=== PATIENT | male | born 1945 | race Caucasian/White ===

== ENCOUNTER 2022-07-02 05:14 | Emergency (ER) | payer BC, SELFPAY ==
[2022-07-02 05:22] VITALS: BP 139/88; PULSE 124; RESP 24; TEMP 36.7; O2SAT 94
[2022-07-02 05:30] VITALS: BP 132/90; PULSE 117; RESP 24; O2SAT 93
--- NOTE | 2022-07-02 05:43 | CRLHL7_ITS ---
For Patients: As a result of the Cures Act, medical imaging exams and procedure reports are released immediately into your electronic medical record. You may view this report before your referring provider. If you have questions, please contact your health care provider. INDICATION: Shortness of breath TECHNIQUE: Chest 2 views. COMPARISON: Chest x-ray 12/18/2021 FINDINGS: The heart is normal in size. The pulmonary vasculature is within normal limits. The lungs are clear without focal consolidation, pleural effusion or pneumothorax. There are mild degenerative changes of the thoracic spine. IMPRESSION: No acute process. Dictated by Azra Ireland MD @ 07/02/2022 6:33:43 AM Dictated by: Azra Ireland MD @ 07/02/2022 06:33:53 (Electronically Signed)
--- NOTE | 2022-07-02 05:50 | ED_ITS ---
HPI - SOB/Dyspnea General Date Seen: 07/02/22 Chief Complaint: Shortness of Breath/Dyspnea Stated Complaint: can't breath Time Seen by Provider: 07/02/22 05:31 Source: patient and family Mode of arrival: ambulatory Limitations: no limitations History of Present Illness MD elicited complaint: shortness of breath and cough Pertinent past history: COPD Onset (ago): hour(s) Context: smoke/fume exposure Timing: constant Severity: moderate Relieving factors: bronchodilators and upright position Known history of: COPD Associated symptoms: denies other symptoms Treatment prior to arrival: bronchodilator Related Data Home oxygen amount: none Home Medications Medication Instructions Recorded Confirmed albuterol sulfate 90 mcg/actuation inhalation 07/02/22 aerosol inhaler amlodipine 2.5 mg tablet mg 07/02/22 finasteride 5 mg tablet mg 07/02/22 fluoxetine 10 mg capsule mg 07/02/22 fluticasone 500 mcg-salmeterol 50 inhalation BID 07/02/22 mcg/dose blistr powdr for inhalation (Advair Diskus) ipratropium 20 mcg-albuterol 100 inhalation QID 07/02/22 mcg/actuation mist for inhalation (Combivent Respimat) levothyroxine 125 mcg tablet mcg 07/02/22 levothyroxine 150 mcg tablet mcg 07/02/22 losartan 50 mg tablet mg 07/02/22 rosuvastatin 5 mg tablet mg 07/02/22 Previous Rx's Medication Instructions Recorded oseltamivir 30 mg capsule (Tamiflu) 30 mg PO BID 5 days #10 caps 07/02/22 prednisone 50 mg tablet 50 mg PO DAILY #7 tabs 07/02/22 Allergies Allergy/AdvReac Type Severity Reaction Status Date / Time ampicillin Allergy hives Verified 07/02/22 05:27 Review of Systems Status of ROS: Reports: 10 or more systems reviewed and unremarkable except as noted in History and below PFSH PFSH Social History Smoking Status: Current every day smoker How often do you have a drink containing alcohol: never AUDIT-C Alcohol total score: 0 Non-prescribed substance use: denies use Exam Narrative: Exam Narrative: I find him in room 2, speaking to me in full sentences, no coughing. Pupils are equal round reactive to light, there is no scleral icterus redness, TMs bilaterally are normal, oropharynx is normal, he is hyperinflated, but there is no signs of of respiratory distress, no crackles or wheezes are noted, but he is not moving a lot of air. Heart sounds no clicks murmurs or gallops, S1-S2 heard normal but the heart sounds are distant. Abdomen is soft and obese there is no guarding no pedal splenomegaly. Skin reveals no rashes, no leg swelling. Const: Vital Signs, click to edit/add: Vital Signs - 24 hr 07/02/22 05:22 07/02/22 05:30 07/02/22 06:00 Temperature 98.0 F Pulse Rate [Left P ulse Oximeter] 124 H 117 H 121 H Respiratory Rate 24 24 22 Blood Pressure [Ri ght Upper Arm] 139/88 132/90 H 134/89 Pulse Oximetry 94 93 Oxygen Delivery Me thod Room Air Room Air Room Air 07/02/22 06:30 Temperature Pulse Rate [Left P ulse Oximeter] 107 H Respiratory Rate 20 Blood Pressure [Ri ght Upper Arm] 129/85 Pulse Oximetry Oxygen Delivery Me thod Room Air Documenting provider has reviewed patient's vital signs: yes Common normals: no apparent distress General appearance: cooperative and comfortable Nutritional appearance: obese Orientation/consciousness: Yes awake Neuro: Sensorium/orientation: awake Course Course Hospital Course: Reviewed labs with the patient is D-dimer is normal, age adjusted, troponin negative, EKG shows no acute changes chest x-ray showed no acute findings, and he is influenza A positive, which is likely causing his COPD exacerbation, I think we will give him Tamiflu, along with the prednisone, he will use his inhalers, he is markedly improved here, talking to me in full sentences feeling better. No need for hospitalization, or other issue currently, I went over with him the signs and symptoms of worsening he will follow-up these occur. Vital Signs Vital signs: Initial Vital Signs Temperature 98.0 F 07/02/22 05:22 Temperature Source Temporal Artery Scan 07/02/22 05:22 Pulse Rate 124 H 07/02/22 05:22 Respiratory Rate 24 07/02/22 05:22 Blood Pressure 139/88 07/02/22 05:22 Blood Pressure Mean 105 07/02/22 05:22 Blood Pressure Position Sitting 07/02/22 05:22 Pulse Oximetry 94 07/02/22 05:22 Oxygen Delivery Method 07/02/22 05:22 Vital Signs Temperature 98.0 F 07/02/22 05:22 Pulse Rate 124 H 07/02/22 05:22 Respiratory Rate 24 07/02/22 05:22 Blood Pressure 139/88 07/02/22 05:22 Pulse Oximetry 94 07/02/22 05:22 Oxygen Delivery Method 07/02/22 05:22 Temperature 98.0 F 07/02/22 05:22 Pulse Rate 107 H 07/02/22 06:30 Respiratory Rate 20 07/02/22 06:30 Blood Pressure 129/85 07/02/22 06:30 Pulse Oximetry 93 07/02/22 05:30 Oxygen Delivery Method 07/02/22 06:30 MDM - SOB/Dyspnea MDM Narrative Medical decision making narrative: Life-threatening differential diagnosis includes occluded COPD exacerbation, pulmonary edema, acute coronary syndromes, pulmonary embolism, pneumonia, and pneumothorax. Other differential diagnosis considerations include asthma, bronchitis as well as other etiologies Differential Diagnosis Differential diagnosis: Likely acute exacerbation of chronic obstructive airways disease, congestive heart failure, community acquired pneumonia, asthma with exacerbation and pulmonary embolism Medical Records Attestation: I reviewed the patient's medical records. Lab Data Attestation: I reviewed the patient's lab results. Labs: Lab Results 07/02/22 07/02/22 07/02/22 Range/Units 05:35 06:10 06:10 WBC 7.20 (4.50-11.00) K/uL RBC 4.23 L (4.30-5.90) m/uL Hgb 14.4 (13.5-17.5) gm/dL Hct 40.6 (37.0-53.0) % MCV 96 (80-100) fL MCH 34 (26-34) pg MCHC 36 (32-36) gm/dL RDW Coeff of Kateryna 12.6 (11.5-15.5) % Plt Count 264 (140-440) K/uL Neut % (Auto) 80.6 H (42.0-72.0) % Lymph % (Auto) 8.3 L (20-44) % Monroe % (Auto) 7.5 (0.0-11.0) % Eos % (Auto) 2.4 (0.0-7.0) % Baso % (Auto) 0.6 (0.0-3.0) % Neut # (Auto) 5.80 (1.7-7.0) K/uL Lymph # (Auto) 0.60 L (0.90-2.90) K/uL Monroe # (Auto) 0.50 (0.00-0.90) K/UL Eos # (Auto) 0.17 (0.00-0.50) K/uL Baso # (Auto) 0.04 (0.00-0.30) K/uL Abs Immat Gran (auto) 0.04 (0.00-0.30) K/uL Imm/Tot Granulo (auto) 0.6 % D-Dimer Quant (PE/DVT) (0.00-0.50) ug/ml Sodium 131 L (135-149) mmol/L Potassium 5.0 (3.6-5.1) mmol/L Chloride 100 (96-114) mmol/L Carbon Dioxide 25 (20-32) mmol/L BUN 23 (7-30) mg/dL Creatinine 1.3 (0.5-1.5) mg/dL Estimated Creat Clear 50.69 Estimated GFR 57 ml/min Glucose 102 (60-115) mg/dL Calcium 9.5 (8.4-10.6) mg/dL NT-Pro-B Natriuret Pep (0-450) PG/mL SARS-CoV-2 (PCR) Negative SARS-CoV-2 (Negative) Influenza Type A (PCR) POSITIVE PCR FLU A A (Negative) Influenza Type B (PCR) Negative PCR FLU B (Negative) RSV (PCR) Negative PCR RSV (Negative) POC Troponin I (0.01-0.04) ng/ml 07/02/22 07/02/22 07/02/22 Range/Units 06:10 06:10 06:10 WBC (4.50-11.00) K/uL RBC (4.30-5.90) m/uL Hgb (13.5-17.5) gm/dL Hct (37.0-53.0) % MCV (80-100) fL MCH (26-34) pg MCHC (32-36) gm/dL RDW Coeff of Kateryna (11.5-15.5) % Plt Count (140-440) K/uL Neut % (Auto) (42.0-72.0) % Lymph % (Auto) (20-44) % Monroe % (Auto) (0.0-11.0) % Eos % (Auto) (0.0-7.0) % Baso % (Auto) (0.0-3.0) % Neut # (Auto) (1.7-7.0) K/uL Lymph # (Auto) (0.90-2.90) K/uL Monroe # (Auto) (0.00-0.90) K/UL Eos # (Auto) (0.00-0.50) K/uL Baso # (Auto) (0.00-0.30) K/uL Abs Immat Gran (auto) (0.00-0.30) K/uL Imm/Tot Granulo (auto) % D-Dimer Quant (PE/DVT) 0.55 H (0.00-0.50) ug/ml Sodium (135-149) mmol/L Potassium (3.6-5.1) mmol/L Chloride (96-114) mmol/L Carbon Dioxide (20-32) mmol/L BUN (7-30) mg/dL Creatinine (0.5-1.5) mg/dL Estimated Creat Clear Estimated GFR ml/min Glucose (60-115) mg/dL Calcium (8.4-10.6) mg/dL NT-Pro-B Natriuret Pep 114 (0-450) PG/mL SARS-CoV-2 (PCR) (Negative) Influenza Type A (PCR) (Negative) Influenza Type B (PCR) (Negative) RSV (PCR) (Negative) POC Troponin I 0.00 L (0.01-0.04) ng/ml Imaging Data Chest x-ray: Attestation: I have reviewed the pertinent imaging results. My impression: Hyperinflation, no acute change when compared to old chest x-ray Radiologist's impression: Patient: ORESTES NIEVES Facility:?[facility] Patient ID:?[id number] Site Patient ID:?[id number]. Site :?[id number] Study:?XRay Chest 2 views-07/02/2022 6:07:55 AM Ordering Physician:Stephy Hudson Final Report: INDICATION: Shortness of breath TECHNIQUE: Chest 2 views. COMPARISON: Chest x-ray 12/18/2021 FINDINGS: The heart is normal in size. The pulmonary vasculature is within normal limits. The lungs are clear without focal consolidation, pleural effusion or pneumothorax. There are mild degenerative changes of the thoracic spine. IMPRESSION: No acute process. Dictated by Azra Ireland MD @ 07/02/2022 6:33:43 AM Dictated by: Azra Ireland MD @ 07/02/2022 06:33:53 (Electronic Signature) ECG Data Attestation: I personally reviewed and interpreted this ECG as follows: ECG interpretation date: 07/02/22 Interpretation: Mild sinus tachycardia with a ventricular rate of 109, no acute ST wave changes, Discharge Plan Discharge Clinical Impression: Influenza A, Acute infective exacerbation of chronic obstructive airway disease, Tobacco use disorder Patient Disposition: Home, Self-Care Condition: Stable Instructions: Influenza (ED), COPD (Chronic Obstructive Pulmonary Disease) (DC) Additional Instructions: Home rest continue with prednisone, Tamiflu, and inhalers as needed. Rest, plenty of fluids. Return here if signs and symptoms of worsening, but clearly you are maintaining your own now. Stop smoking! Prescriptions: New oseltamivir [Tamiflu] 30 mg capsule 30 mg PO BID 5 Days Qty: 10 0RF prednisone 50 mg tablet 50 mg PO DAILY Qty: 7 0RF No Action losartan 50 mg tablet Label Comments: TAKE 1 TABLET (50 MG) BY MOUTH ONCE DAILY. amlodipine 2.5 mg tablet Label Comments: TAKE 1 TABLET (2.5 MG) BY MOUTH ONCE DAILY. levothyroxine 125 mcg tablet Label Comments: TAKE ONE TABLET BY MOUTH EVERY OTHER DAY, ALTERNATING WITH 150 MCG TABLET levothyroxine 150 mcg tablet Label Comments: TAKE ONE TABLET BY MOUTH EVERY OTHER DAY fluticasone propion-salmeterol [Advair Diskus] 500-50 mcg/dose blister with device INHALATION BID Label Comments: INHALE 1 PUFF BY MOUTH IN THE MORNING AND 1 PUFF IN THE EVENING. fluoxetine 10 mg capsule Label Comments: TAKE 1 CAPSULE (10 MG) BY MOUTH ONCE DAILY. albuterol sulfate 90 mcg/actuation HFA aerosol inhaler INHALATION Label Comments: INHALE 1-2 PUFFS BY MOUTH EVERY 4 HOURS IF NEEDED FOR SHORTNESS OF BREATH. USE WITH SPACER finasteride 5 mg tablet Label Comments: TAKE 1 TABLET (5 MG) BY MOUTH BEFORE BREAKFAST. rosuvastatin 5 mg tablet Label Comments: TAKE 1 TABLET (5 MG) BY MOUTH AT BEDTIME. Combivent Respimat 20-100 mcg/actuation mist INHALATION QID Label Comments: INHALE 1 PUFF BY MOUTH 4 TIMES DAILY. Follow Up/Referrals: Liana Schmidt MD [Primary Care Provider] - Stand Alone Forms: [facility] Info Instructions
[2022-07-02 06:00] VITALS: BP 134/89; PULSE 121; RESP 22
[2022-07-02] MEDS: predniSONE 10 MG TABLET 50 MG PO (06:07)
[2022-07-02] MEDS: IPRAT-ALBUT 0.5-2.5 MG/3 ML NEB 1 NEB IH (06:07)
[2022-07-02 06:21] LABS: Basophils Absolute Auto 0.04 K/uL (0.00-0.30); Basophils Percent Auto 0.6 % (0.0-3.0); Eosinophils Absolute Auto 0.17 K/uL (0.00-0.50); Eosinophils Percent Auto 2.4 % (0.0-7.0); Hematocrit 40.6 % (37.0-53.0); Hemoglobin* 14.4 gm/dL (13.5-17.5); Immature Granulocytes Abs Auto 0.04 K/uL (0.00-0.30); Immature Granulocytes Pct Auto 0.6 %; Lymphocytes Percent Auto 8.3 % (20-44); Mean Corpuscular HGB Conc 36 gm/dL (32-36); Mean Corpuscular Hemoglobin 34 pg (26-34); Mean Corpuscular Volume 96 fL (80-100); Monocytes Percent Auto 7.5 % (0.0-11.0); Neutrophils Percent Auto 80.6 % (42.0-72.0); Platelet Count* 264 K/uL (140-440); RDW Coefficient of Variation % 12.6 % (11.5-15.5); Red Blood Count 4.23 m/uL (4.30-5.90); Slide Review Reflex No
[2022-07-02 06:21] LABS: PCR FLU A POSITIVE PCR FLU A (Negative); PCR FLU B Negative PCR FLU B (Negative); PCR RSV Negative PCR RSV (Negative)
[2022-07-02 06:22] LABS: SARS PCR* Negative SARS-CoV-2 (Negative)
[2022-07-02 06:30] VITALS: BP 129/85; PULSE 107; RESP 20
[2022-07-02 06:46] LABS: Chloride* 100 mmol/L (96-114); Sodium* 131 mmol/L (135-149)
[2022-07-02 06:49] LABS: Carbon Dioxide* 25 mmol/L (20-32); Creatinine* 1.3 mg/dL (0.5-1.5); Est. Creatinine Clearance* 50.69; Estimated Glomerular Filt Rate 57 ml/min
[2022-07-02 06:50] LABS: Blood Urea Nitrogen* 23 mg/dL (7-30); Calcium* 9.5 mg/dL (8.4-10.6); Glucose* 102 mg/dL (60-115)
[2022-07-02 06:51] LABS: D Dimer Quantitative* 0.55 ug/ml (0.00-0.50)
[2022-07-02 06:59] LABS: NT Pro B Type NatriureticPept* 114 PG/mL (0-450)
[2022-07-02 07:00] VITALS: BP 129/84; PULSE 106; RESP 20
[2022-07-02] MEDS: OSELTAMIVIR PHOSPHATE 75 MG CAPSULE PO (07:31)
== END 2022-07-02 07:42 | disposition home or self-care (01) ==
PROVIDERS: Emergency Provider Family Medicine; PCP Family Medicine
DX: J09.X2 Influenza due to identified novel influenza A virus with other respiratory manifestations (principal); J44.1 Chronic obstructive pulmonary disease with (acute) exacerbation; Z72.0 Tobacco use
CPT/HCPCS: 36415; 71046; 80048; 83880; 85025; 85379; 87502; 87634; 87635; 93005; 94640; 99284; 99285; A9270; J7512

== ENCOUNTER 2022-11-14 11:45 | Emergency (ER) | payer BC, SELFPAY ==
[2022-11-14] VITALS (25 sets, daily range): BP systolic 102–131; BP diastolic 77–108; PULSE 90–105; RESP 24–40; TEMP 36.4; O2SAT 92–97; BMI 29.1
[2022-11-14] MEDS: IPRAT-ALBUT 0.5-2.5 MG/3 ML NEB 1 NEB IH (12:00)
--- NOTE | 2022-11-14 12:07 | CRLHL7_ITS ---
For Patients: As a result of the Cures Act, medical imaging exams and procedure reports are released immediately into your electronic medical record. You may view this report before your referring provider. If you have questions, please contact your health care provider. Indication: Cough, short of breath Technique: Chest 2 views Comparison: Chest x-ray 07/02/2022 Findings/Impression: Cardiovascular and mediastinum: Normal heart size with atherosclerotic calcification. Lungs and pleural spaces: No pleural effusion or pneumothorax. No focal consolidation. Mild bronchial wall thickening which can be seen in bronchitis or reactive airways disease. Bones and soft tissues: No significant findings. Dictated by Les Castro MD @ 11/14/2022 1:17:51 PM (Electronically Signed)
--- NOTE | 2022-11-14 12:35 | ED_ITS ---
HPI - SOB/Dyspnea General Date Seen: 11/14/22 Chief Complaint: Shortness of Breath/Dyspnea Stated Complaint: Short of breath, cough Time Seen by Provider: 11/14/22 12:00 Source: patient Mode of arrival: ambulatory Limitations: no limitations History of Present Illness HPI Narrative: Patient is a 77-year-old gentleman with a history of COPD who presents here for the last 3-4 days with the some increasing shortness of breath, runny nose, inability here and pain in his ears bilaterally, also in the front of his face, denies any fevers or chills with this, any leg swelling, any chest pain, he has had no nausea vomiting associated with this, but has been at the for his son recently. Is not on chronic oxygen but does have a history of COPD, MD elicited complaint: shortness of breath Pertinent past history: COPD Onset (ago): day(s) Context: recent illness Timing: constant and progressively worsening Severity: moderate Exacerbating factors: lying flat and coughing Relieving factors: nothing Known history of: COPD Associated symptoms: cough, wheezing, sputum production and chest congestion Treatment prior to arrival: bronchodilator Related Data Home oxygen amount: none Home Medications Medication Instructions Recorded Confirmed albuterol sulfate 90 mcg/actuation inhalation 07/02/22 aerosol inhaler amlodipine 2.5 mg tablet mg 07/02/22 finasteride 5 mg tablet mg 07/02/22 fluoxetine 10 mg capsule mg 07/02/22 fluticasone 500 mcg-salmeterol 50 inhalation BID 07/02/22 mcg/dose blistr powdr for inhalation (Advair Diskus) ipratropium 20 mcg-albuterol 100 inhalation QID 07/02/22 mcg/actuation mist for inhalation (Combivent Respimat) levothyroxine 125 mcg tablet mcg 07/02/22 levothyroxine 150 mcg tablet mcg 07/02/22 losartan 50 mg tablet mg 07/02/22 rosuvastatin 5 mg tablet mg 07/02/22 Previous Rx's Medication Instructions Recorded oseltamivir 30 mg capsule (Tamiflu) 30 mg PO BID 5 days #10 caps 07/02/22 prednisone 50 mg tablet 50 mg PO DAILY #7 tabs 07/02/22 azithromycin 250 mg tablet See Rx Instructions PO .COMPLEX #6 11/14/22 (Zithromax Z-Joshua) tabs prednisone 50 mg tablet 50 mg PO DAILY #7 tabs 11/14/22 Allergies Allergy/AdvReac Type Severity Reaction Status Date / Time ampicillin Allergy hives Verified 07/02/22 05:27 Review of Systems Status of ROS: Reports: 10 or more systems reviewed and unremarkable except as noted in History and below [facility] Social History Smoking Status: Current every day smoker How often do you have a drink containing alcohol: never AUDIT-C Alcohol total score: 0 Non-prescribed substance use: denies use Exam Narrative: Exam Narrative: Patient is seen in room a, he is in no apparent distress but is super hard hearing, pupils are equal round reactive to light there is no scleral icterus, there is some redness noted of his throat, his TMs bilaterally show some hemorrhage, and fluid, with obvious otitis media, oropharynx shows great hydration status was no other swelling, neck is supple JVP [place] is down, his lungs bilaterally show really poor air more entry and expiration bilaterally with a prolonged expiratory phase I do not really hear any crackles or wheezes, heart sounds are distant faint but S1-S2 is normal there is no S3-S4 clicks murmurs or gallops his abdomen is soft and slightly obese there is no guarding, no organomegaly, no tenderness, his lower extremities reveal no pitting edema swelling, he moves all his extremities independently and well. Skin reveals no petechiae rashes, neurologically moves his upper lower extremities normal, there is no deficits. Cranial nerves 3-12 are normal. Const: Vital Signs, click to edit/add: Vital Signs - 24 hr 11/14/22 11:55 11/14/22 14:31 11/14/22 11:55 Temperature 97.6 F Pulse Rate 103 H Pulse Rate [Right Pulse Oximeter] 101 H Respiratory Rate 40 H 24 Blood Pressure Blood Pressure [Ri ght Upper Arm] 129/80 Pulse Oximetry 95 96 Oxygen Delivery Me thod Room Air 11/14/22 11:59 11/14/22 12:00 11/14/22 12:01 Temperature Pulse Rate 101 H 98 105 H Pulse Rate [Right Pulse Oximeter] Respiratory Rate Blood Pressure 129/80 123/81 Blood Pressure [Ri ght Upper Arm] Pulse Oximetry 95 95 93 Oxygen Delivery Me thod 11/14/22 12:15 11/14/22 12:39 11/14/22 12:45 Temperature Pulse Rate 93 105 H 104 H Pulse Rate [Right Pulse Oximeter] Respiratory Rate Blood Pressure Blood Pressure [Ri ght Upper Arm] Pulse Oximetry 92 95 95 Oxygen Delivery Me thod 11/14/22 12:52 11/14/22 12:53 11/14/22 13:00 Temperature Pulse Rate 102 H 103 H 101 H Pulse Rate [Right Pulse Oximeter] Respiratory Rate Blood Pressure 102/77 Blood Pressure [Ri ght Upper Arm] Pulse Oximetry 94 96 94 Oxygen Delivery Me thod 11/14/22 13:01 11/14/22 13:02 11/14/22 13:15 Temperature Pulse Rate 102 H 105 H 97 Pulse Rate [Right Pulse Oximeter] Respiratory Rate Blood Pressure 116/83 Blood Pressure [Ri ght Upper Arm] Pulse Oximetry 92 92 96 Oxygen Delivery Me thod 11/14/22 13:30 11/14/22 13:32 11/14/22 13:45 Temperature Pulse Rate 93 91 94 Pulse Rate [Right Pulse Oximeter] Respiratory Rate Blood Pressure 125/77 Blood Pressure [Ri ght Upper Arm] Pulse Oximetry 95 95 97 Oxygen Delivery Me thod 11/14/22 14:00 11/14/22 14:01 11/14/22 14:15 Temperature Pulse Rate 93 93 90 Pulse Rate [Right Pulse Oximeter] Respiratory Rate Blood Pressure 122/80 Blood Pressure [Ri ght Upper Arm] Pulse Oximetry 95 96 95 Oxygen Delivery Me thod 11/14/22 14:30 11/14/22 14:31 11/14/22 14:32 Temperature Pulse Rate 102 H 95 101 H Pulse Rate [Right Pulse Oximeter] Respiratory Rate Blood Pressure 126/108 H Blood Pressure [Ri ght Upper Arm] Pulse Oximetry 97 96 96 Oxygen Delivery Me thod 11/14/22 14:45 11/14/22 15:00 11/14/22 15:01 Temperature Pulse Rate 98 93 95 Pulse Rate [Right Pulse Oximeter] Respiratory Rate Blood Pressure 131/85 Blood Pressure [Ri ght Upper Arm] Pulse Oximetry 96 95 94 Oxygen Delivery Me thod Documenting provider has reviewed patient's vital signs: yes Course Course Hospital Course: Went back in to see the patient, he is markedly improved this respiratory rate that is now 17, he has no wheeziness, and feels much improved, I do think he has bilateral ear infections, and likely exacerbation of his COPD, I discussed with him, his troponin was negative, EKG was reassuring, and D-dimer was normal at this point, I think more use of his inhalers along with some prednisone and Zithromax, will go a long way to helping him, encouraged him to follow-up with regular physician, in the next 1-2 weeks. He was comfortable this plan he will return if any signs and symptoms of worsening. Vital Signs Vital signs: Initial Vital Signs Temperature 97.6 F 11/14/22 11:55 Temperature Source Temporal Artery Scan 11/14/22 11:55 Pulse Rate 103 H 11/14/22 11:55 Respiratory Rate 40 H 11/14/22 11:55 Blood Pressure 129/80 11/14/22 11:55 Blood Pressure Mean 96 11/14/22 11:55 Blood Pressure Position Sitting 11/14/22 11:55 Pulse Oximetry 95 11/14/22 11:55 Oxygen Delivery Method Room Air 11/14/22 11:55 Vital Signs Temperature 97.6 F 11/14/22 11:55 Pulse Rate 103 H 11/14/22 11:55 Respiratory Rate 40 H 11/14/22 11:55 Blood Pressure 129/80 11/14/22 11:55 Pulse Oximetry 95 11/14/22 11:55 Oxygen Delivery Method Room Air 11/14/22 11:55 Temperature 97.6 F 11/14/22 11:55 Pulse Rate 95 11/14/22 15:01 Respiratory Rate 24 11/14/22 14:31 Blood Pressure 131/85 11/14/22 15:01 Pulse Oximetry 94 11/14/22 15:01 Oxygen Delivery Method Room Air 11/14/22 11:55 MDM - SOB/Dyspnea MDM Narrative Medical decision making narrative: Life-threatening differential diagnosis includes occluded COPD exacerbation, pulmonary edema, acute coronary syndromes, pulmonary embolism, pneumonia, and pneumothorax. Other differential diagnosis considerations include asthma, bronchitis as well as other etiologies Medical Records Attestation: I reviewed the patient's medical records. Lab Data Labs: Lab Results 11/14/22 11/14/22 11/14/22 Range/Units 12:04 12:10 12:11 WBC 13.49 H (4.50-11.00) K/uL RBC 4.16 L (4.30-5.90) m/uL Hgb 14.0 (13.5-17.5) gm/dL Hct 40.0 (37.0-53.0) % MCV 96 (80-100) fL MCH 34 (26-34) pg MCHC 35 (32-36) gm/dL RDW Coeff of Kateryna 12.5 (11.5-15.5) % Plt Count 284 (140-440) K/uL Neut % (Auto) 83.2 H (42.0-72.0) % Lymph % (Auto) 10.5 L (20-44) % [place] % (Auto) 5.3 (0.0-11.0) % Eos % (Auto) 0.8 (0.0-7.0) % Baso % (Auto) 0.1 (0.0-3.0) % Neut # (Auto) 11.20 H (1.7-7.0) K/uL Lymph # (Auto) 1.40 (0.90-2.90) K/uL [place] # (Auto) 0.70 (0.00-0.90) K/UL Eos # (Auto) 0.10 (0.00-0.50) K/uL Baso # (Auto) 0.00 (0.00-0.30) K/uL INR 1.26 H (0.91-1.10) APTT 41 H (23-33) Seconds D-Dimer Quant (PE/DVT) 0.61 H (0.00-0.50) ug/ml Sodium 129 L (135-149) mmol/L Potassium 4.3 (3.6-5.1) mmol/L Chloride 100 (96-114) mmol/L Carbon Dioxide 23 (20-32) mmol/L BUN 21 (7-30) mg/dL Creatinine 1.3 (0.5-1.5) mg/dL Estimated Creat Clear 51.49 Estimated GFR 57 ml/min Glucose 146 H (60-115) mg/dL Calcium 8.9 (8.4-10.6) mg/dL C-Reactive Protein 9.0 H (0.5-1.0) mg/dL NT-Pro-B Natriuret Pep 185 pg/mL SARS-CoV-2 (PCR) Negative SARS-CoV-2 (Negative) Influenza Type A (PCR) Negative PCR FLU A (Negative) Influenza Type B (PCR) Negative PCR FLU B (Negative) RSV (PCR) Negative PCR RSV (Negative) Group A Strep DNA NOT DETECTED (Not Detectd) POC Troponin I (0.01-0.04) ng/ml 11/14/22 Range/Units 14:17 WBC (4.50-11.00) K/uL RBC (4.30-5.90) m/uL Hgb (13.5-17.5) gm/dL Hct (37.0-53.0) % MCV (80-100) fL MCH (26-34) pg MCHC (32-36) gm/dL RDW Coeff of Kateryna (11.5-15.5) % Plt Count (140-440) K/uL Neut % (Auto) (42.0-72.0) % Lymph % (Auto) (20-44) % [place] % (Auto) (0.0-11.0) % Eos % (Auto) (0.0-7.0) % Baso % (Auto) (0.0-3.0) % Neut # (Auto) (1.7-7.0) K/uL Lymph # (Auto) (0.90-2.90) K/uL [place] # (Auto) (0.00-0.90) K/UL Eos # (Auto) (0.00-0.50) K/uL Baso # (Auto) (0.00-0.30) K/uL INR (0.91-1.10) APTT (23-33) Seconds D-Dimer Quant (PE/DVT) (0.00-0.50) ug/ml Sodium (135-149) mmol/L Potassium (3.6-5.1) mmol/L Chloride (96-114) mmol/L Carbon Dioxide (20-32) mmol/L BUN (7-30) mg/dL Creatinine (0.5-1.5) mg/dL Estimated Creat Clear Estimated GFR ml/min Glucose (60-115) mg/dL Calcium (8.4-10.6) mg/dL C-Reactive Protein (0.5-1.0) mg/dL NT-Pro-B Natriuret Pep pg/mL SARS-CoV-2 (PCR) (Negative) Influenza Type A (PCR) (Negative) Influenza Type B (PCR) (Negative) RSV (PCR) (Negative) Group A Strep DNA (Not Detectd) POC Troponin I 0.02 (0.01-0.04) ng/ml ECG Data Attestation: I personally reviewed and interpreted this ECG as follows: ECG interpretation date: 11/14/22 Prior ECG tracings: not available for review Interpretation: EKG shows sinus tachycardia with a ventricular rate of 103, QRS QT and MI intervals normal. Discharge Plan Discharge Clinical Impression: Acute infective exacerbation of chronic obstructive airway disease Patient Disposition: Home w/ Parent or Adult Condition: Improved Instructions: COPD (Chronic Obstructive Pulmonary Disease) (DC), Chronic Bronchitis (DC) Additional Instructions: Home rest use of nebulize treatment, and nebs, we will put you on some Zithromax along with some prednisone for the next few days, return here if increasing shortness of breath or other symptoms, Activity Level: No Restrictions Discharge Diet: Regular Prescriptions: New azithromycin [Zithromax Z-Joshua] 250 mg tablet See Rx Instructions .ROUTE .COMPLEX Qty: 6 0RF Rx Instructions: For 250 mg dose pack: take 500 mg today (day 1), then 250 mg for 4 days (days 2-5) prednisone 50 mg tablet 50 mg PO DAILY Qty: 7 0RF No Action losartan 50 mg tablet Patient Comments: TAKE 1 TABLET (50 MG) BY MOUTH ONCE DAILY. amlodipine 2.5 mg tablet Patient Comments: TAKE 1 TABLET (2.5 MG) BY MOUTH ONCE DAILY. levothyroxine 125 mcg tablet Patient Comments: TAKE ONE TABLET BY MOUTH EVERY OTHER DAY, ALTERNATING WITH 150 MCG TABLET levothyroxine 150 mcg tablet Patient Comments: TAKE ONE TABLET BY MOUTH EVERY OTHER DAY fluticasone propion-salmeterol [Advair Diskus] 500-50 mcg/dose blister with device INHALATION BID Patient Comments: INHALE 1 PUFF BY MOUTH IN THE MORNING AND 1 PUFF IN THE EVENING. fluoxetine 10 mg capsule Patient Comments: TAKE 1 CAPSULE (10 MG) BY MOUTH ONCE DAILY. albuterol sulfate 90 mcg/actuation HFA aerosol inhaler INHALATION Patient Comments: INHALE 1-2 PUFFS BY MOUTH EVERY 4 HOURS IF NEEDED FOR SHORTNESS OF BREATH. USE WITH SPACER finasteride 5 mg tablet Patient Comments: TAKE 1 TABLET (5 MG) BY MOUTH BEFORE BREAKFAST. rosuvastatin 5 mg tablet Patient Comments: TAKE 1 TABLET (5 MG) BY MOUTH AT BEDTIME. Combivent Respimat 20-100 mcg/actuation mist INHALATION QID Patient Comments: INHALE 1 PUFF BY MOUTH 4 TIMES DAILY. oseltamivir [Tamiflu] 30 mg capsule 30 mg PO BID 5 Days Qty: 10 0RF prednisone 50 mg tablet 50 mg PO DAILY Qty: 7 0RF Follow Up/Referrals: Liana Schmidt MD [Primary Care Provider] - Stand Alone [facility] Info Inst[facility]
[2022-11-14 12:59] LABS: Basophils Percent Auto 0.1 % (0.0-3.0); Eosinophils Percent Auto 0.8 % (0.0-7.0); Immature Granulocytes Pct Auto 0.1 %; Lymphocytes Percent Auto 10.5 % (20-44); Mean Corpuscular HGB Conc 35 gm/dL (32-36); Mean Corpuscular Hemoglobin 34 pg (26-34); Mean Corpuscular Volume 96 fL (80-100); Monocytes Percent Auto 5.3 % (0.0-11.0); Neutrophils Percent Auto 83.2 % (42.0-72.0); Platelet Count* 284 K/uL (140-440); RDW Coefficient of Variation % 12.5 % (11.5-15.5); Red Blood Count 4.16 m/uL (4.30-5.90); White Blood Count* 13.49 K/uL (4.50-11.00)
[2022-11-14 13:08] LABS: D Dimer Quantitative* 0.61 ug/ml (0.00-0.50); INR 1.26 (0.91-1.10); Partial Thromboplastin Time* 41 Seconds (23-33); Prothrombin Time 16.5 Seconds
[2022-11-14 13:10] LABS: Slide Review Reflex No
[2022-11-14 13:23] LABS: Sodium* 129 mmol/L (135-149)
[2022-11-14 13:24] LABS: Strep A DNA Probe* NOT DETECTED (Not Detectd)
[2022-11-14 13:24] LABS: Blood Urea Nitrogen* 21 mg/dL (7-30); Calcium* 8.9 mg/dL (8.4-10.6); Carbon Dioxide* 23 mmol/L (20-32); Chloride* 100 mmol/L (96-114); Creatinine* 1.3 mg/dL (0.5-1.5); Est. Creatinine Clearance* 51.49; Estimated Glomerular Filt Rate 57 ml/min; Glucose* 146 mg/dL (60-115); NT Pro B Type NatriureticPept* 185 pg/mL; Potassium* 4.3 mmol/L (3.6-5.1)
[2022-11-14 13:29] LABS: PCR FLU A Negative PCR FLU A (Negative); PCR FLU B Negative PCR FLU B (Negative); PCR RSV Negative PCR RSV (Negative)
[2022-11-14 13:35] LABS: SARS PCR* Negative SARS-CoV-2 (Negative)
--- NOTE | 2022-11-14 13:56 | ED.NURSE ---
Pt c/o sore bottom due to sitting in bed for extended time. Pt assisted to sit in recliner in room.
[2022-11-14 14:43] LABS: Troponin, Point-of-Care* 0.02 ng/ml (0.01-0.04)
== END 2022-11-14 15:50 | disposition home or self-care (01) ==
PROVIDERS: Emergency Provider Family Medicine; PCP Family Medicine
DX: J44.1 Chronic obstructive pulmonary disease with (acute) exacerbation (principal)
CPT/HCPCS: 36415; 71046; 80048; 83880; 84484; 85025; 85379; 85610; 85730; 86140; 87631; 87651; 93005; 94640; 99284

== ENCOUNTER 2023-06-05 11:53 | Emergency (ER) | payer MEDICARE, SELFPAY ==
[2023-06-05 12:03] VITALS: BP 162/74; PULSE 98; RESP 20; TEMP 36.4; O2SAT 93; BMI 29.6
--- NOTE | 2023-06-05 12:29 | CRLHL7_ITS ---
For Patients: As a result of the Century Cures Act, medical imaging exams and procedure reports are released immediately into your electronic medical record. You may view this report before your referring provider. If you have questions, please contact your health care provider. INDICATION: Left flank pain. TECHNIQUE: CT abdomen and pelvis without contrast. COMPARISON: None. FINDINGS: Lower chest: Scattered atelectasis. Hiatal hernia. Liver: Left hepatic lobe cyst. Normal in size and attenuation. No suspicious masses. Gallbladder and bile ducts: No stones or inflammation. No biliary dilatation. Pancreas: Pancreatic tail calcifications likely sequela of pancreatitis. No mass or inflammation. Spleen: Normal in size. No masses. Adrenal glands: Normal in size. No nodules. Kidneys: Right exophytic renal cyst. Normal in size. No suspicious masses, stones, or hydronephrosis. GI tract: Mild colonic stool burden most pronounced in the proximal colon. Submucosal fatty infiltration of the distal colon and rectum likely related to remote proctocolitis. Normal in caliber. No sign of mass or inflammation. Normal appendix. Vasculature: Moderate aortoiliac arterial calcifications. Infrarenal abdominal aorta measuring 3.8 x 3.7 centimeters Lymph nodes: No lymphadenopathy. Peritoneum/Abdominal Wall: Tiny fat containing umbilical hernia. No sign of mass or infiltration. No free air or significant free fluid. Pelvis: Unremarkable. No pelvic masses. Bones: Degenerative changes. IMPRESSION: No acute intra-abdominal/pelvic abnormality including obstructive uropathy as questioned. Mild proximal colonic stool burden. Redemonstration of infrarenal abdominal aorta, measuring up to 3.8 centimeters. Please note that all CT scans at this facility use dose modulation, iterative reconstruction, and/or weight-based dosing when appropriate to reduce radiation dose to as low as reasonably achievable. Dictated by Dex Jimenez MD @ 06/05/2023 1:55:35 PM (Electronically Signed)
[2023-06-05] MEDS: KETOROLAC 15 MG/ML inj IVP (12:48)
[2023-06-05 12:52] VITALS: BP 116/67; PULSE 72; RESP 20; O2SAT 98
[2023-06-05 13:10] LABS: Basophils Absolute Auto 0.04 K/uL (0.00-0.30); Basophils Percent Auto 0.6 % (0.0-3.0); Eosinophils Absolute Auto 0.12 K/uL (0.00-0.50); Eosinophils Percent Auto 1.7 % (0.0-7.0); Hematocrit 37.4 % (37.0-53.0); Hemoglobin* 13.1 gm/dL (13.5-17.5); Immature Granulocytes Abs Auto 0.01 K/uL (0.00-0.30); Immature Granulocytes Pct Auto 0.1 %; Lymphocytes Percent Auto 19.3 % (20-44); Mean Corpuscular HGB Conc 35 gm/dL (32-36); Mean Corpuscular Hemoglobin 34 pg (26-34); Mean Corpuscular Volume 97 fL (80-100); Monocytes Percent Auto 6.9 % (0.0-11.0); Neutrophils Absolute Auto 5.18 K/uL (1.7-7.0); Neutrophils Percent Auto 71.4 % (42.0-72.0); Platelet Count* 276 K/uL (140-440); RDW Coefficient of Variation % 12.8 % (11.5-15.5); Red Blood Count 3.84 m/uL (4.30-5.90); White Blood Count* 7.25 K/uL (4.50-11.00)
[2023-06-05 13:15] LABS: Slide Review Reflex No
[2023-06-05 13:24] LABS: C Reactive Protein* 0.8 mg/dL (0.5-1.0)
[2023-06-05 14:11] VITALS: PULSE 97; RESP 18
--- NOTE | 2023-06-05 14:18 | ED.GENADULT ---
HPI - General Adult General Date Seen: 06/05/23 Chief complaint: Back Injury/Pain Stated complaint: back pain Time Seen by Provider: 06/05/23 12:09 Source: patient Mode of arrival: ambulatory Limitations: no limitations History of Present Illness HPI narrative: Patient is a 77-year-old male, generally fairly healthy, who developed some left lumbar pain yesterday. No injury or inciting event. He said yesterday was not terrible, Tylenol was controlling it but then today it is severe. It is worse when he tries to go from laying down to sitting up, he feels better standing. He does not have radiating pain. He denies any recent fevers, night sweats, unexpected weight loss. He has not had any numbness or weakness. He has not had urinary symptoms, no history of kidney stones. No prior history with back pain. He does smoke. Related Data Home Medications Medication Instructions Recorded Confirmed albuterol sulfate 90 mcg/actuation 2 puff inhalation PRN 07/02/22 06/05/23 aerosol inhaler amlodipine 2.5 mg tablet mg 07/02/22 finasteride 5 mg tablet mg 07/02/22 01/12/23 fluoxetine 10 mg capsule mg 07/02/22 01/12/23 fluticasone 500 mcg-salmeterol 50 inhalation BID 07/02/22 01/12/23 mcg/dose blistr powdr for inhalation (Advair Diskus) ipratropium 20 mcg-albuterol 100 1 puff inhalation QID 07/02/22 06/05/23 mcg/actuation mist for inhalation (Combivent Respimat) levothyroxine 125 mcg tablet 125 mcg PO .Every other day 07/02/22 06/05/23 levothyroxine 150 mcg tablet 150 mcg PO .Every other day 07/02/22 06/05/23 losartan 50 mg tablet mg 07/02/22 01/12/23 rosuvastatin 5 mg tablet mg 07/02/22 01/12/23 Allergies Allergy/AdvReac Type Severity Reaction Status Date / Time ampicillin Allergy Mild hives Verified 06/05/23 12:03 Review of Systems Status of ROS: Reports: 10 or more systems reviewed and unremarkable except as noted in History and below [facility] Medical History COPD (chronic obstructive pulmonary disease) ?J44.9 - Chronic obstructive pulmonary disease, unspecified (ICD-10) Osteoarthritis of carpometacarpal (CMC) joint of right thumb ?M18.11 - Unilateral primary osteoarthritis of first carpometacarpal joint, right hand (ICD-10) Osteoarthritis of carpometacarpal (CMC) joint of left thumb ?M18.12 - Unilateral primary osteoarthritis of first carpometacarpal joint, left hand (ICD-10) Surgical History H/O thyroidectomy (1967) ?E89.0 - Postprocedural hypothyroidism (ICD-10) Social History Smoking Status: Current every day smoker What tobacco products do you use: cigarettes Smoking packs per day: 1 Smoking cigarettes per day: 20.0 Do you use any of these nicotine containing products: None Second hand tobacco smoke exposure: No How often do you have a drink containing alcohol: never AUDIT-C Alcohol total score: 0 Non-prescribed substance use: denies use Exam Narrative: Exam Narrative: Vital signs as noted above. In general, an alert, well-appearing patient. Head: Normocephalic, atraumatic. Eyes: Pupils are equal reactive. Extraocular movements are full. Conjunctivae are normal. ENT: Mucous membranes are moist. Throat is normal. Neck: Supple without lymphadenopathy. Heart: Regular rate and rhythm. No murmur or rub. Lungs: Clear bilaterally. No increased work of breathing, crackles or wheezes. Abdomen: Soft and nontender. Back: Does have some reproducible tenderness in the musculature on the left. No significant midline tenderness. Extremities: Well perfused. No edema. No calf tenderness. Pulses intact. Neurologic: Patient is alert and oriented to person and place. Speech is fluent. Face is symmetric. Moves all extremities equally. Strength in lower extremities 5 of 5. Affect: Normal. Skin: Warm and dry. Well perfused. Const: Vital Signs, click to edit/add: Vital Signs - 24 hr 06/05/23 12:03 06/05/23 12:52 06/05/23 14:11 Temperature 97.6 F Pulse Rate [Pulse Oximeter] 98 72 97 Respiratory Rate 20 20 18 Blood Pressure [Ri ght Upper Arm] 162/74 H 116/67 Pulse Oximetry 93 98 Oxygen Delivery Me thod Room Air Room Air Documenting provider has reviewed patient's vital signs: yes Course Course ED Course: Patient drove here and said he would not have other means of way home so he had Toradol IV with some improvement. I elected to do a CT scan which by my review did not show evidence of compression fracture, bony lesion, kidney stone or other acute abnormality. Final radiology read shows no acute abnormalities. He does have a stable 3.8 cm infrarenal aortic aneurysm. CBC and CRP are unremarkable aside from very mild anemia with a hemoglobin of 13.1. He does feel able to go home the he requests something to use for pain over the next day or 2. He typically takes Tylenol which he has been taking, I have asked him to take 1000 mg 3 times daily for the next few days. I gave him a prescription for Flexeril if needed at night and I gave him oxycodone 8. Discussed that these are habit-forming, can cause dizziness, sleepiness, constipation etcetera to use with caution. Primary care follow-up if not improving gradually over the next week. Return any time for acute worsening such as severe uncontrolled pain, weakness, fevers, etc.. Vital Signs Vital signs: Initial Vital Signs Temperature 97.6 F 06/05/23 12:03 Temperature Source Temporal Artery Scan 06/05/23 12:03 Pulse Rate 98 06/05/23 12:03 Respiratory Rate 20 06/05/23 12:03 Blood Pressure 162/74 H 06/05/23 12:03 Blood Pressure Mean 103 06/05/23 12:03 Blood Pressure Position Sitting 06/05/23 12:03 Pulse Oximetry 93 06/05/23 12:03 Oxygen Delivery Method Room Air 06/05/23 12:03 Vital Signs Temperature 97.6 F 06/05/23 12:03 Pulse Rate 98 06/05/23 12:03 Respiratory Rate 20 06/05/23 12:03 Blood Pressure 162/74 H 06/05/23 12:03 Pulse Oximetry 93 06/05/23 12:03 Oxygen Delivery Method Room Air 06/05/23 12:03 Temperature 97.6 F 06/05/23 12:03 Pulse Rate 97 06/05/23 14:11 Respiratory Rate 18 06/05/23 14:11 Blood Pressure 116/67 06/05/23 12:52 Pulse Oximetry 98 06/05/23 12:52 Oxygen Delivery Method Room Air 06/05/23 12:52 Medical Decision Making Lab Data Labs: Lab Results 06/05/23 Range/Units 12:55 WBC 7.25 (4.50-11.00) K/uL RBC 3.84 L (4.30-5.90) m/uL Hgb 13.1 L (13.5-17.5) gm/dL Hct 37.4 (37.0-53.0) % MCV 97 (80-100) fL MCH 34 (26-34) pg MCHC 35 (32-36) gm/dL RDW Coeff of Kateryna 12.8 (11.5-15.5) % Plt Count 276 (140-440) K/uL Neut % (Auto) 71.4 (42.0-72.0) % Lymph % (Auto) 19.3 L (20-44) % [place] % (Auto) 6.9 (0.0-11.0) % Eos % (Auto) 1.7 (0.0-7.0) % Baso % (Auto) 0.6 (0.0-3.0) % Neut # (Auto) 5.18 (1.7-7.0) K/uL Lymph # (Auto) 1.40 (0.90-2.90) K/uL [place] # (Auto) 0.50 (0.00-0.90) K/UL Eos # (Auto) 0.12 (0.00-0.50) K/uL Baso # (Auto) 0.04 (0.00-0.30) K/uL Abs Immat Gran (auto) 0.01 (0.00-0.30) K/uL Imm/Tot Granulo (auto) 0.1 % C-Reactive Protein 0.8 (0.5-1.0) mg/dL Discharge Plan Discharge Clinical Impression: Strain of lumbar region Patient Disposition: Home, Self-Care Condition: Improved Instructions: Low Back Strain (ED) Additional Instructions: Tylenol 1000 mg plus or minus ibuprofen 400 mg 3 times daily for baseline pain control. Muscle relaxer as needed. Oxycodone if needed for severe uncontrolled pain, use with caution as this can cause dizziness, sleepiness, constipation etcetera. Discard any unused pills. Primary care follow-up if not gradually improving over the next week. Prescriptions: No Action losartan 50 mg tablet Patient Comments: TAKE 1 TABLET (50 MG) BY MOUTH ONCE DAILY. amlodipine 2.5 mg tablet Patient Comments: TAKE 1 TABLET (2.5 MG) BY MOUTH ONCE DAILY. levothyroxine 125 mcg tablet 125 mcg PO .Every other day Patient Comments: TAKE ONE TABLET BY MOUTH EVERY OTHER DAY, ALTERNATING WITH 150 MCG TABLET levothyroxine 150 mcg tablet 150 mcg PO .Every other day Patient Comments: TAKE ONE TABLET BY MOUTH EVERY OTHER DAY fluticasone propion-salmeterol [Advair Diskus] 500-50 mcg/dose blister with device INHALATION BID Patient Comments: INHALE 1 PUFF BY MOUTH IN THE MORNING AND 1 PUFF IN THE EVENING. fluoxetine 10 mg capsule Patient Comments: TAKE 1 CAPSULE (10 MG) BY MOUTH ONCE DAILY. albuterol sulfate 90 mcg/actuation HFA aerosol inhaler 2 puff INHALATION PRN Patient Comments: INHALE 1-2 PUFFS BY MOUTH EVERY 4 HOURS IF NEEDED FOR SHORTNESS OF BREATH. USE WITH SPACER finasteride 5 mg tablet Patient Comments: TAKE 1 TABLET (5 MG) BY MOUTH BEFORE BREAKFAST. rosuvastatin 5 mg tablet Patient Comments: TAKE 1 TABLET (5 MG) BY MOUTH AT BEDTIME. Combivent Respimat 20-100 mcg/actuation mist 1 puff INHALATION QID Patient Comments: INHALE 1 PUFF BY MOUTH 4 TIMES DAILY. Follow Up/Referrals: TAMICA TRAN DO [Primary Care Provider] - Stand Alone Forms: [facility] Info Instructions
== END 2023-06-05 14:10 | disposition home or self-care (01) ==
PROVIDERS: Emergency Provider Emergency Medicine; PCP Student in an Organized Health Care Education/Training Program
DX: S39.012A Strain of muscle, fascia and tendon of lower back, initial encounter (principal)
CPT/HCPCS: 36415; 74176; 81001; 85025; 86140; 99284; J1885